=== PATIENT | female | born 1950 | race Caucasian/White ===

== ENCOUNTER 2016-10-02 13:32 | Emergency (ER) | payer BC ==
--- NOTE | 2016-10-02 14:36 | RAD ---
INDICATION: Right rib injury. TECHNIQUE: 4 views of the right ribs were obtained. FINDINGS: There is a minimally displaced fracture of the right lateral sixth rib. No other fractures are seen. IMPRESSION: MINIMALLY DISPLACED FRACTURE OF THE RIGHT LATERAL SIXTH RIB.
--- NOTE | 2016-10-02 14:38 | RAD ---
INDICATION: Trauma, chest pain right side. COMPARISON: There are no prior studies available for comparison. TECHNIQUE: Dual-energy PA and lateral views of the chest were obtained. FINDINGS: The heart is within normal limits in size. Mediastinal and hilar contours appear within normal limits. The lungs are clear. No pleural effusion or pneumothorax is seen. IMPRESSION: THE LUNGS ARE CLEAR, THERE IS NO EVIDENCE FOR PNEUMOTHORAX OR PLEURAL EFFUSION.
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
== END 2016-10-02 15:20 | disposition home or self-care (01) ==
LOC: UCEAST 13:32
DX: S22.31XA Fracture of one rib, right side, initial encounter for closed fracture (principal); W18.09XA Striking against other object with subsequent fall, initial encounter; Y93.9 Activity, unspecified; Y92.9 Unspecified place or not applicable; Z88.2 Allergy status to sulfonamides; Z91.041 Radiographic dye allergy status
CPT/HCPCS: 71020; 99213; G0463

== ENCOUNTER 2020-03-06 22:15 | Inpatient (IN) ==
[2020-03-06] MEDS ORDERED: LORazepam 2 mg VIAL 1 ml ONE (23:07)
[2020-03-06] MEDS ORDERED: Haloperidol 5 mg/ml SDV IV/IM 5 MG/ML AMP IM ONE (23:12)
[2020-03-06] MEDS ORDERED: diPHENhydraMINE IV 50 MG/ML 1 ml VIAL (BENADRYL) IM ONE (23:12)
[2020-03-06] MEDS ORDERED: LORazepam 2 mg VIAL 1 ml IM ONE (23:12)
[2020-03-07] MEDS ORDERED: NS 0.9% 1000 ml BAG 1,000 ML IV ONE (00:42)
[2020-03-07 00:44] LABS: ABS Basophils 0.1 10^3/ul (0-0.2); ABS Eosinophils 0.2 10^3/ul (0-0.6); ABS Lymphocytes 2.7 10^3/ul (1.0-4.8); ABS Monocytes 0.4 10^3/ul (0-0.8); ABS Neutrophils 3.6 10^3/ul (1.5-7.7); Eosinophil % 2.2 %; Hematocrit 42 % (35-47); Hemoglobin 13.9 g/dL (12.0-16.0); Lymphocyte % 38.8 %; Mean Corpuscular HGB Conc 33 g/dL (31-36); Mean Corpuscular Hemoglobin 31 pg (27-31); Mean Corpuscular Volume 92 fL (80-97); Mean Platelet Volume 10.5 fL (7.4-10.4); Platelet Count 173 10^3/uL (150-450); Red Blood Count 4.55 10^6 /uL (3.70-4.87); Red Cell Distribution Width 13 % (10-15)
[2020-03-07 01:00] LABS: ALT 28 U/L (7-52); AST 27 U/L (13-39); Albumin 4.2 g/dL (3.2-5.2); Albumin/Globulin Ratio 1.7 (1-3); Alkaline Phosphatase 88 U/L (34-104); Anion Gap 11 mmol/L (2-11); BUN/Creatinine Ratio 16.9 (8-20); Blood Urea Nitrogen 14 mg/dL (6-24); CO2 Carbon Dioxide 24 mmol/L (22-32); Calcium 9.5 mg/dL (8.6-10.3); Chloride 106 mmol/L (101-111); EGFR African American 82.7 (>60); EGFR Non-African American 68.4 (>60); Globulin 2.5 g/dL (2-4); Glucose 124 mg/dL (70-100); Potassium 3.9 mmol/L (3.5-5.0); Sodium 141 mmol/L (135-145); Total Protein 6.7 g/dL (6.4-8.9)
[2020-03-07 01:01] LABS: Alcohol, S 114 mg/dL (<10); Salicylate < 2.50 mg/dL (<30)
[2020-03-07 01:19] LABS: Acetaminophen < 15 mcg/mL
[2020-03-07] MEDS ORDERED: Al Hydrox/Mg Hydrox/Simet LIQ 30 ML UDC PO PRN (06:28)
[2020-03-07] MEDS: Vitamin THERAPEUTIC TAB PO SCH (13:15)
[2020-03-08] MEDS: Vitamin THERAPEUTIC TAB PO SCH (08:18)
[2020-03-08 08:46] VITALS: BP 154/72
== END 2020-03-08 14:00 | disposition home or self-care (01) | DRG 882 ==
LOC: ED 22:15 → BSU 03-07 05:19
PROVIDERS: ADMIT Psychiatry & Neurology Psychiatry; ATTEND Psychiatry & Neurology Psychiatry